=== PATIENT | male | born 1955 | race Two or more races ===

== ENCOUNTER → 2024-07-24 | Outpatient (CLI) | payer BC, SELFPAY ==
[2024-07-24 08:10] LABS: Collection Type, Urine Clean Catch
[2024-07-24 08:35] LABS: Basophils # (Auto) 0.1 Thou/mm3 (0.0-0.2); Basophils % (Auto) 1 % (0-2.5); Eosinophils # (Auto) 0.2 Thou/mm3 (0.0-0.5); Eosinophils % (Auto) 3 % (0-10); Hematocrit 42.7 % (41.0-53.0); Hemoglobin 15.5 g/dL (13.5-16.0); Immature Granulocytes % (Auto) 0 % (0-0); Immature Granulocytes Auto 0.02 Thou/mm3 (0.00-0.00); Lymphocytes # (Auto) 1.2 Thou/mm3 (1.0-4.8); Lymphocytes % (Auto) 21 % (10-50); Mean Corpuscular HGB Conc 36.3 g/dl (31.0-37.0); Mean Corpuscular Hemoglobin 31.6 pg (25.0-35.0); Mean Corpuscular Volume 87 fL (80-100); Monocytes # (Auto) 0.6 Thou/mm3 (0.0-0.8); Monocytes % (Auto) 10 % (0-12); Neutrophils # (Auto) 3.8 Thou/mm3 (1.8-7.7); Neutrophils % (Auto) 65 % (37-80); Nucleated Red Blood Cell % 0 /100 WBC (0); Platelet Count 185 Thou/mm3 (140-440); RDW Standard Deviation 39.6 fL (35.1-43.9); Red Blood Count 4.91 Miln/mm3 (4.50-5.90); White Blood Count 5.8 Thou/mm3 (3.8-10.6)
[2024-07-24 08:43] LABS: Bacteria,Urine 2+; Bilirubin,Urine Negative (Negative); Blood,Urine Negative (Negative); Clarity,Urine Clear (Clear/Hazy); Color,Urine Lt-Yellow (Lt Yel-Yel); Glucose, Urine Negative (Negative); Ketones,Urine Negative (Negative); Leukocyte Esterase,Urine Positive (Negative); Nitrite,Urine Positive (Negative); PH,Urine 6.5 (5.0-7.0); Protein,Urine Trace (Neg - Trace); RBC,Urine 3 /hpf (0-3); Specific Gravity,Urine 1.019 (1.001-1.035); Squamous Epithelial Cell,Urine 1 /hpf (0-5); Urobilinogen,Urine Negative mg/dL (0.0-1.0); WBC,Urine 7 /hpf (0-5)
[2024-07-24 08:49] LABS: Glucose Estimated Average 105 mg/dL (80-131); Hemoglobin A1C 5.3 % Hgb (4.8-6.0)
[2024-07-24 08:56] LABS: Prostate Specific Antigen 0.29 ng/mL (0-4.00)
[2024-07-24 08:58] LABS: Vitamin B12 510 pg/mL (211-911); Vitamin D 25 Hydroxy Total 26.5 ng/mL (7.3-40.2)
[2024-07-24 09:01] LABS: Alanine Aminotransferase 33 U/L (10-49); Albumin, Serum 4.7 gm/dL (3.4-4.8); Alkaline Phosphatase 106 U/L (46-116); Anion Gap 6 (7-16); Aspartate Amino Transferase 25 U/L (0-34); BUN/Creatinine Ratio 25 Ratio (12-20); Bilirubin,Total 0.6 mg/dL (0.3-1.2); Blood Urea Nitrogen 20 mg/dL (9-23); Cardiac Risk Estimate 3.5 RATIO (4.0-6.7); Chloride 104 mMol/L (98-107); Cholesterol 209 mg/dL (132-200); Creatinine (Component) 0.8 mg/dL (0.6-1.3); Globulin 2.4 gm/dL (2.3-3.5); Glucose 102 mg/dL (74-106); HDL Cholesterol 59 mg/dL (40-60); LDL Cholesterol,Calculated 130 mg/dL (0-130); Osmolality,Calculated 283 (275-295); Potassium 4.6 mMol/L (3.4-5.1); Sodium 141 mMol/L (136-145); Thyroid Stimulating Hormone 1.73 uIU/mL (0.55-4.78); Total Protein 7.1 gm/dL (5.7-8.2); Triglycerides 99 mg/dL (30-150); Uric Acid 5.1 mg/dL (3.7-9.2); eGFR > 60 See Note
[2024-08-01 06:26] LABS: Aldosterone* <5 ng/dL
[2024-08-05 06:53] LABS: Renin Activity, Plasma* 0.69 ng/mL/h (0.25-5.82)
== END | disposition home or self-care (01) ==
PROVIDERS: PCP Internal Medicine; Referring Provider Internal Medicine; Visit Provider Internal Medicine
DX: Z00.00 Encounter for general adult medical examination without abnormal findings (principal); I10 Essential (primary) hypertension
CPT/HCPCS: 36415; 80053; 80061; 81001; 82088; 82306; 82607; 83036; 84153; 84244; 84443; 84550; 85025

== ENCOUNTER → 2024-08-12 | Outpatient (CLI) | payer BC, SELFPAY ==
[2024-08-12 10:26] LABS: Misc Send Out* See Sep Rpt
== END | disposition home or self-care (01) ==
PROVIDERS: PCP Internal Medicine; Referring Provider Internal Medicine; Visit Provider Internal Medicine
DX: Z00.00 Encounter for general adult medical examination without abnormal findings (principal); I10 Essential (primary) hypertension
CPT/HCPCS: 82384

== ENCOUNTER 2024-08-17 14:52 | Emergency (ER) | payer BC, SELFPAY ==
[2024-08-17 16:00] VITALS: BP 124/63; PULSE 79; RESP 18; TEMP 36.7; O2SAT 98; BMI 25.7
--- NOTE | 2024-08-17 17:27 | EKG_ITS ---
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
--- NOTE | 2024-08-17 18:08 | PD.EDRME ---
Rapid Medical Screening Exam RME Arrival date/time: 08/17/24 14:52 68 year old male present to Ed for c/o of dizziness. I have greeted and performed a focused initial assessment of this patient. A comprehensive ED assessment and evaluation of the patient, analysis of all test results, and completion of the medical decision making process will be conducted by additional ED providers. Chief Complaint: Dizziness Time Seen by Provider: 08/17/24 21:02 Vital signs: Vital Signs Temperature 98.0 F 08/17/24 16:00 Pulse Rate 79 08/17/24 16:00 Respiratory Rate 18 08/17/24 16:00 Blood Pressure 124/63 08/17/24 16:00 Pulse Oximetry (%) 98 08/17/24 16:00 Oxygen Delivery Method Room Air 08/17/24 16:00
[2024-08-17 18:13] LABS: Basophils # (Auto) 0.1 Thou/mm3 (0.0-0.2); Basophils % (Auto) 1 % (0-2.5); Eosinophils # (Auto) 0.2 Thou/mm3 (0.0-0.5); Eosinophils % (Auto) 2 % (0-10); Hematocrit 45.7 % (41.0-53.0); Hemoglobin 16.3 g/dL (13.5-16.0); Immature Granulocytes % (Auto) 1 % (0-0); Immature Granulocytes Auto 0.04 Thou/mm3 (0.00-0.00); Lymphocytes # (Auto) 1.8 Thou/mm3 (1.0-4.8); Lymphocytes % (Auto) 20 % (10-50); Mean Corpuscular HGB Conc 35.7 g/dl (31.0-37.0); Mean Corpuscular Hemoglobin 31.2 pg (25.0-35.0); Mean Corpuscular Volume 87 fL (80-100); Monocytes % (Auto) 11 % (0-12); Neutrophils # (Auto) 5.7 Thou/mm3 (1.8-7.7); Neutrophils % (Auto) 65 % (37-80); Nucleated Red Blood Cell % 0 /100 WBC (0); Platelet Count 193 Thou/mm3 (140-440); RDW Standard Deviation 39.7 fL (35.1-43.9); Red Blood Count 5.23 Miln/mm3 (4.50-5.90); White Blood Count 8.7 Thou/mm3 (3.8-10.6)
[2024-08-17 18:27] LABS: B-Type Natriuretic Peptide < 20 pg/mL (0-100)
[2024-08-17 18:29] LABS: Alanine Aminotransferase 36 U/L (10-49); Albumin, Serum 4.9 gm/dL (3.4-4.8); Albumin/Globulin Ratio 1.8 (1.2-2.2); Alkaline Phosphatase 104 U/L (46-116); Anion Gap 7 (7-16); Aspartate Amino Transferase 30 U/L (0-34); BUN/Creatinine Ratio 29 Ratio (12-20); Bilirubin,Total 0.4 mg/dL (0.3-1.2); Blood Urea Nitrogen 29 mg/dL (9-23); Calcium 10.4 mg/dL (8.3-10.6); Calcium (Corrected) 10.4 mg/dL (8.5-10.1); Carbon Dioxide 31.7 mMol/L (20.0-31.0); Chloride 100 mMol/L (98-107); Estimated Creatinine Clearance 76.3 mL/min (>60); Globulin 2.8 gm/dL (2.3-3.5); Glucose 87 mg/dL (74-106); Osmolality,Calculated 282 (275-295); Potassium 3.9 mMol/L (3.4-5.1); Sodium 139 mMol/L (136-145); Total Protein 7.7 gm/dL (5.7-8.2); Troponin I < 0.020 ng/mL (0.0-0.045); eGFR > 60 See Note
--- NOTE | 2024-08-17 19:20 | XR_ITS ---
Examination: CT brain head without contrast. 2-D sagittal coronal reconstructions Date and time of exam:August 17, 2024 1727 hrs. Indications: Dizziness onset focal neurologic deficits today CTDI: vol (mGy):51.8 DLP: (mGycm):1079 Technique: Multiple CT axial sections of the brain have been obtained, 5 mm slice thickness. Contrast has not been administered. 2-D sagittal, coronal reconstructions have been obtained Low dose protocols were performed. One or more of the following dose reduction techniques were used; automated exposure control, adjustment of the mA and/or KV according to patient size, use of iterative reconstruction technique. Findings: No significant ventricular enlargement. Intra-axial or extra-axial hemorrhage density is not seen. No mass effect or midline shift Basal cisterns are not remarkable. Fourth ventricle is midline. Cranial vault intact. Impression: Negative for acute hemorrhage, mass effect or midline shift
--- NOTE | 2024-08-17 20:29 | PRELIM_ITS ---
CT scan of the head without intravenous contrast (axial sections with sagittal and coronal reformats) August 17, 2024 1927 hours Clinical history: Persistent dizziness, rule out stroke No prior study i s available for comparison. Findings:There is no evidence of intracranial hemorrhage, mass effect or midline shift. There are periventricular white matter hypodensities, compatible with chronic small ve ssel ischemia. No definitive wedge shaped acute infarcts are detected. Please note that subtle early infarcts are better assessed using diffusion weighted MR imaging if clinically indicated. There is mi ld volume loss. The calvarium is unremarkable. The mastoid air cells and the visualized paranasal sin uses are clear.Impression:No evidence of intracranial hemorrhage, mass effect or midline shift. If th ere are persistent clinical symptoms or additional clinical concerns consider an MRI.Periventricular chronic small vessel ischemia and volume loss. Report Electronically Signed By: Ed Cornelius 2024 8:28:52 PM [EST]
[2024-08-17 21:31] VITALS: BP 145/71; PULSE 71; RESP 17; TEMP 36.9; O2SAT 96
--- NOTE | 2024-08-17 21:45 | EDNOTE_ITS ---
ED Dizzyness RME/HPI General Chief Complaint: Dizziness Stated Complaint: LIGHT HEADED, DIZZINESS HX VERTIGO Time Seen by Provider: 08/17/24 21:02 Source: patient Arrival date/time: 08/17/24 14:52 Mode of arrival: ambulatory Limitations: no limitations RME / HPI RME / HPI Narrative: 08/17/24 14:52 68 year old male present to Ed for c/o of dizziness. I have greeted and performed a focused initial assessment of this patient. A comprehensive ED assessment and evaluation of the patient, analysis of all test results, and completion of the medical decision making process will be conducted by additional ED providers. --- DR. BARRETO MAIN ED EVALUATION: 68-year-old male with history of benign positional vertigo on Meclizine who p resents to the emergency department with complaints of intermittent onset of dizziness and nausea noted with quick movements, now worse since August 06. He notes it has been about the same in the last 12 to 24 hours and the patient just wanted to get checked out because he needs to go back to work on Monday. Patient states it is usually improved with Meclizine that he takes twice a day. Patient recently was treated for UTI about 1 week ago as an outpatient and his urinalysis definitely shows that he had a UTI. No urine culture was sent at the time. Patient states that this feels like the room is spinning and goes away with rest. The patient denies headache, weakness, paresthesias, loss of consciousness, fever, change in gait, tinnitus, vomiting, strength loss, chest pain, shortness of breath, diarrhea, vomiting, chills, diaphoresis, recent illnesses, or other complaints. No recent trauma, travel, unusual food, or illnesses. Primary care physician Dr. Eden Related Data Previous Rx's ?Medication ?Instructions ?Recorded meclizine 25 mg tablet 25 mg PO BID PRN dizziness #20 tabs 03/27/21 Allergies Allergy/AdvReac Type Severity Reaction Status Date / Time No Known Allergies Allergy Verified 08/17/24 14:53 Review of Systems Review of Systems Systems Reviewed: All systems reviewed, normal except as documented Past Medical History Past Medical History CARDIAC: Negative Congestive Heart Failure RESPIRATORY: Negative Chronic Obstructive Pulmonary Disease (COPD) GENITOURINARY: Negative Renal Disease ENDOCRINE: Negative Diabetes Mellitus Type 1 or Diabetes Mellitus Type 2 Social History SMOKING STATUS: Never smoker ED Exam Narrative Physical exam: General: Non-toxic, well appearing, in no acute distress, and appears state age and well developed and well nourished. Vital signs: Normal. Head: Normocephalic and atraumatic. Eyes: Aproptotic, extraocular movements intact, and pupils equally round and reactive to light. No nystagmus at rest. Nose: Nares without evidence of rhinorrhea. Neck: Supple without menigismus without lympadenopathy. Heart: Regular rate and rhythm without murmur, gallops, or rubs. Lungs: Clear to auscultation without wheezing, rales, or rhonchi. Abdomen: Soft, nontender, no masses, and not distended. Back: No costovertebral angle tenderness. Neurologic: Alert and oriented to person, place, and time. Cranial nerves 2-12 grossly intact. Sensation to light touch intact in all extremities. Strength 5/5 bilaterally. Negative drift and romberg. No dysdiadochokinesia. Negative romberg. Gait normal. Extremities: no cyanosis or edema. Skin: no rashes, ecchymosis, or lesions. General Limitations: Present no limitations Course Quality Measures none Orders Category Date Time Status EKG (ED ONLY) *Do not use* NOW Care 08/17/24 17:[address] head/brain wo con Stat Exams 08/17/24 19:20 Completed EKG (ED Only) Stat Exams 08/17/24 17:27 Draft BNP [B-Type Natriuretic Peptide] Stat Lab 08/17/24 17:44 Completed CBC Stat Lab 08/17/24 17:44 Completed Comprehensive Metabolic Panel Stat Lab 08/17/24 17:44 Completed Troponin I Stat Lab 08/17/24 17:44 Completed Urinalysis Stat Lab 08/17/24 22:04 Completed Urine Culture Stat Lab 08/17/24 22:04 Received Diazepam [Valium] Med 08/17/24 22:00 Discontinued 2 mg PO X1 ONE Vital Signs Vital signs: Vital Signs Temperature 98.0 F 08/17/24 16:00 Pulse Rate 79 08/17/24 16:00 Respiratory Rate 18 08/17/24 16:00 Blood Pressure 124/63 08/17/24 16:00 Pulse Oximetry (%) 98 08/17/24 16:00 Oxygen Delivery Method Room Air 08/17/24 16:00 Procedures -ED EKG Interpretation #1: Date of EK08/17/24 Time of EK:33 Rate: 74 Interpretation: Interpreted by me EKG Impression: Normal sinus rhythm Additional EKG comment: Right bundle branch block. QTc 429. No ST elevations or depressions. Impression: No ABRAHAM MS Dizziness MDM Narrative MDM Narrative:: Safety net established and ECG retrieved showing no evidence of STEMI or other acute findings. No evidence of central process since no neurological findings, acute onset, rapid resolution, and reproducible symptoms with Douglas-Hallpike maneuver. Doubt tumor, myocardial infarction, CVA, abscess, dissection, or ATT[employer]NEY [employer] pathology. Labs, CXR, and ECG unremarkable. After valium, patient noted significant symptomatic relief. Likely benign peripheral positional vertigo. Plan to follow up with primary care physician and use Meclizine for symptoms until seen. The patient was informed not to drive until seen by the primary care physician. Vital signs remained stable throughout the emergency department course. The patient was given strict return precautions and was comfortable with the plan. ? Scribe Attestation: I, Chayo Pierson, am scribing for and in the presence of Dr. Taylor. Provider Notation: Although this document has been carefully reviewed, there may still be some phonetic and other typographical errors. These errors are purely grammatical due to imperfections in the software program and should not be construed in any way to compromise the substance of the patient's medical care during this visit. Patient data External records reviewed:: [facility] previous records Clinical information provided by:: patient Social determinants that could affect healthcare access:: none Patient has the following chronic illnesses:: none How is presenting disease/condition affected by chronic disease/condition?: no chronic disease Evaluation data The following diagnostics were reviewed and interpreted by me:: lab results and radiology exam(s) Lab and/or radiology exams considered but not ordered:: none Interpretation Summary: I personally reviewed the radiology data and agree with the radiologist's interpretation. Examination: CT brain head without contrast. 2-D sagittal coronal reconstructions Date and time of exam:August 17, 2024 1727 hrs. Indications: Dizziness onset focal neurologic deficits today Findings: No significant ventricular enlargement. Intra-axial or extra-axial hemorrhage density is not seen. No mass effect or midline shift Basal cisterns are not remarkable. Fourth ventricle is midline. Cranial vault intact. Impression: Negative for acute hemorrhage, mass effect or midline shift Dictated By: Fuentes Leyva MD Medications / Prescriptions Medications or Prescriptions considered but not ordered:: None Medication administrations:: Medication Administration History Discontinued Medications Diazepam (Diazepam 5 Mg Tablet) 2 mg PO X1 ONE Stop: 08/17/24 22:01 Last Admin: 08/17/24 22:12 Dose: 2 mg Documented By: OA As above Consultations Consultation(s) initiated? (list below): No Diagnosis Dizziness Differential Diagnosis: adverse reaction to drug, benign paroxysmal positional vertigo and orthostatic hypotension Most likely diagnosis given after review of the tests above:: Acute dehydration, History of vertigo Admission Indicated Admission indicated?: not indicated Admission Request Was there a request for admission?: No Disposition Plan Disposition Plan: Discharge Discharge Attestation Discharge Attestation: The patient and all family members were given an opportunity to ask questions and understood the discharge instructions. Discharge instructions specifically effects, indications for sooner follow up or return to the emergency department, and the expected course of current diagnosis. Patient condition: Stable Discharge Plan Plan Patient Disposition: HOME (Self Care) Patient condition on transfer: Stable Prescriptions/Referrals Prescriptions/Med Rec: No Action meclizine 25 mg tablet 25 mg PO BID PRN (Reason: dizziness) Qty: 20 0RF Referrals: Shanel Crump MD [Primary Care Provider] - In 1 week Problem List Clinical Impression: Acute dehydration, History of vertigo Patient/Caregiver Discharge Instructions Education Materials: ED Dehydration (Adult) Additional Instructions: Today you have some dehydration based on your urine specific gravity. You will still need outpatient MRI since you are having slight increase in your benign positional vertigo. Please follow-up with Dr. Crump, on Monday as scheduled. Return to emergency department for any worsening symptoms, or any other concerns. Print Language: Mohawk Stand Alone Forms: Mel Award Info., Patient Portal Info Letter
[2024-08-17] MEDS: DIAZEPAM 5 MG TABLET 2 MG PO (22:12)
[2024-08-17 22:25] LABS: Collection Type, Urine Voided
[2024-08-17 22:35] LABS: Bilirubin,Urine Negative (Negative); Blood,Urine Negative (Negative); Clarity,Urine Clear (Clear/Hazy); Color,Urine Yellow (Lt Yel-Yel); Glucose, Urine Negative (Negative); Ketones,Urine Negative (Negative); Leukocyte Esterase,Urine Negative (Negative); Nitrite,Urine Negative (Negative); PH,Urine 5.5 (5.0-7.0); Protein,Urine Trace (Neg - Trace); RBC,Urine 7 /hpf (0-3); Specific Gravity,Urine 1.028 (1.001-1.035); Squamous Epithelial Cell,Urine 6 /hpf (0-5); Urobilinogen,Urine Negative mg/dL (0.0-1.0); WBC,Urine 5 /hpf (0-5)
== END 2024-08-18 01:12 | disposition home or self-care (01) ==
PROVIDERS: Emergency Provider Emergency Medicine; PCP Internal Medicine
DX: E86.0 Dehydration (principal)
CPT/HCPCS: 36415; 70450; 80053; 81001; 83880; 84484; 85025; 87086; 93005; 99284; A9270

== ENCOUNTER → 2024-12-16 | Outpatient (CLI) | payer OTHER, SELFPAY ==
[2024-12-16 09:57] LABS: Albumin, Serum 4.4 gm/dL (3.4-4.8); Anion Gap 6 (7-16); BUN/Creatinine Ratio 19 Ratio (12-20); Blood Urea Nitrogen 17 mg/dL (9-23); Calcium 9.2 mg/dL (8.3-10.6); Calcium (Corrected) 9.2 mg/dL (8.5-10.1); Carbon Dioxide 29.9 mMol/L (20.0-31.0); Chloride 105 mMol/L (98-107); Creatinine (Component) 0.9 mg/dL (0.6-1.3); Glucose 110 mg/dL (74-106); Osmolality,Calculated 283 (275-295); Phosphorous 2.9 mg/dL (2.4-5.1); Potassium 4.6 mMol/L (3.4-5.1); Sodium 141 mMol/L (136-145); eGFR > 60 See Note
== END | disposition home or self-care (01) ==
LOC: COPL 08:21
PROVIDERS: PCP Internal Medicine; Referring Provider Internal Medicine; Visit Provider Internal Medicine
DX: I10 Essential (primary) hypertension (principal)
CPT/HCPCS: 36415; 80069

== ENCOUNTER → 2025-03-24 | Outpatient (CLI) | payer OTHER, SELFPAY ==
[2025-03-24 07:53] LABS: Collection Type, Urine Clean Catch
[2025-03-24 08:41] LABS: Prostate Specific Antigen 0.30 ng/mL (0-4.00)
[2025-03-24 08:42] LABS: Basophils # (Auto) 0.1 Thou/mm3 (0.0-0.2); Basophils % (Auto) 1 % (0-2.5); Eosinophils # (Auto) 0.2 Thou/mm3 (0.0-0.5); Eosinophils % (Auto) 3 % (0-10); Hematocrit 41.8 % (41.0-53.0); Hemoglobin 14.9 g/dL (13.5-16.0); Immature Granulocytes Auto 0.03 Thou/mm3 (0.00-0.00); Lymphocytes # (Auto) 1.0 Thou/mm3 (1.0-4.8); Lymphocytes % (Auto) 16 % (10-50); Mean Corpuscular HGB Conc 35.6 g/dl (31.0-37.0); Mean Corpuscular Hemoglobin 31.8 pg (25.0-35.0); Mean Corpuscular Volume 89 fL (80-100); Monocytes # (Auto) 0.6 Thou/mm3 (0.0-0.8); Monocytes % (Auto) 9 % (0-12); Neutrophils # (Auto) 4.4 Thou/mm3 (1.8-7.7); Neutrophils % (Auto) 71 % (37-80); Nucleated Red Blood Cell # 0.00 Thou/mm3 (0.00-0.00); Nucleated Red Blood Cell % 0 /100 WBC (0); Platelet Count 178 Thou/mm3 (140-440); RDW Standard Deviation 42.6 fL (35.1-43.9); Red Blood Count 4.68 Miln/mm3 (4.50-5.90); White Blood Count 6.1 Thou/mm3 (3.8-10.6)
[2025-03-24 08:47] LABS: Alanine Aminotransferase 29 U/L (10-49); Albumin, Serum 4.2 gm/dL (3.4-4.8); Albumin/Globulin Ratio 1.7 (1.2-2.2); Alkaline Phosphatase 83 U/L (46-116); Anion Gap 8 (7-16); Aspartate Amino Transferase 30 U/L (0-34); BUN/Creatinine Ratio 19 Ratio (12-20); Bilirubin,Total 0.6 mg/dL (0.3-1.2); Blood Urea Nitrogen 15 mg/dL (9-23); Calcium 9.2 mg/dL (8.3-10.6); Calcium (Corrected) 9.2 mg/dL (8.5-10.1); Carbon Dioxide 27.9 mMol/L (20.0-31.0); Cardiac Risk Estimate 3.5 RATIO (4.0-6.7); Chloride 107 mMol/L (98-107); Cholesterol 187 mg/dL (132-200); Creatinine (Component) 0.8 mg/dL (0.6-1.3); Globulin 2.5 gm/dL (2.3-3.5); Glucose 108 mg/dL (74-106); HDL Cholesterol 54 mg/dL (40-60); LDL Cholesterol,Calculated 115 mg/dL (0-130); Osmolality,Calculated 286 (275-295); Potassium 4.0 mMol/L (3.4-5.1); Sodium 143 mMol/L (136-145); Thyroid Stimulating Hormone 1.64 uIU/mL (0.55-4.78); Total Protein 6.7 gm/dL (5.7-8.2); Triglycerides 91 mg/dL (30-150); Uric Acid 4.4 mg/dL (3.7-9.2); eGFR > 60 See Note
[2025-03-24 08:48] LABS: Vitamin B12 678 pg/mL (211-911); Vitamin D 25 Hydroxy Total 29.9 ng/mL (7.3-40.2)
[2025-03-24 08:51] LABS: Bacteria,Urine Rare; Bilirubin,Urine Negative (Negative); Blood,Urine Negative (Negative); Clarity,Urine Clear (Clear/Hazy); Color,Urine Yellow (Lt Yel-Yel); Glucose, Urine Negative (Negative); Ketones,Urine Negative (Negative); Leukocyte Esterase,Urine Positive (Negative); Nitrite,Urine Negative (Negative); PH,Urine 6.0 (5.0-7.0); Protein,Urine 1+ (Neg - Trace); RBC,Urine 2 /hpf (0-3); Specific Gravity,Urine 1.031 (1.001-1.035); Squamous Epithelial Cell,Urine 1 /hpf (0-5); Urobilinogen,Urine Negative mg/dL (0.0-1.0); WBC,Urine 5 /hpf (0-5)
[2025-03-28 06:46] LABS: ANA Screen, IFA NEGATIVE (NEGATIVE)
== END | disposition home or self-care (01) ==
LOC: COPL 06:51
PROVIDERS: PCP Internal Medicine; Referring Provider Internal Medicine; Visit Provider Specialist
DX: Z00.00 Encounter for general adult medical examination without abnormal findings (principal); E78.9 Disorder of lipoprotein metabolism, unspecified; Z12.5 Encounter for screening for malignant neoplasm of prostate
CPT/HCPCS: 36415; 80053; 80061; 81001; 82306; 82607; 84153; 84443; 84550; 85025; 86038

== ENCOUNTER 2025-04-28 10:40 | Day surgery (SDC) | payer OTHER, SELFPAY ==
[2025-04-28] VITALS (11 sets, daily range): BP systolic 141–206; BP diastolic 70–120; PULSE 64–83; RESP 15–22; TEMP 36.2–36.3; O2SAT 95–100; BMI 24.5
[2025-04-28] MEDS: SODIUM CHLORIDE 0.9% 500 ML 500 ML 20 ML IV (12:21)
[2025-04-28] MEDS: BENZOCAINE 20% (Hurricaine) SPRAY 1 DOSE TOP (12:26)
[2025-04-28] MEDS: hydrALAZINE INJ 20 MG/ML VIAL 10 MG IVP ×2 (12:30→12:39)
[2025-04-28] MEDS: MIDAZOLAM INJ 1 MG/ML VIAL 2 ML (ASD USE ONLY) 2 MG IVP (12:35)
[2025-04-28] MEDS: fentaNYL CIT INJ 50 mCg/ML AMP 2ML (ASD USE ONLY) IVP (12:44)
--- NOTE | 2025-04-28 12:50 | SUR.PHASEII ---
1244 patient is sleepy and arousable to loud voice, breathing unlabored, s/p EGD by Dr. Saenz, report received from Isabel ALVAREZ
--- NOTE | 2025-04-28 14:32 | SUR.PHASEII ---
1328 patient is awake, alert, breathing unlabored, able to tolerate 7up with no nausea or vomiting, able to pass gas, patient meets discharge criteria, discharge instructions given to patient and daughter Darcie, patient discharged home in wheelchair with all belongings.
== END 2025-04-28 13:28 | disposition home or self-care (01) ==
PROVIDERS: PCP Internal Medicine; Referring Provider Specialist; Visit Provider Specialist
PROC: (CPT 43239; principal; 2025-04-28 11:15)
DX: K22.2 Esophageal obstruction (principal); K20.90 Esophagitis, unspecified without bleeding; I10 Essential (primary) hypertension; Z79.899 Other long term (current) drug therapy; K29.50 Unspecified chronic gastritis without bleeding
CPT/HCPCS: 43248; 43239; A4649; C1769; J0360; J1200; J2250; J3010; J7999; A9270

== ENCOUNTER → 2025-06-25 | Outpatient (CLI) | payer OTHER, SELFPAY | END | disposition home or self-care (01) | LOC: SRTX 07:48 | PROVIDERS: PCP Internal Medicine; Referring Provider Psychiatry & Neurology Neurology; Visit Provider Psychiatry & Neurology Neurology | DX: R42 Dizziness and giddiness (principal) | CPT/HCPCS: 95816 ==

== ENCOUNTER → 2025-07-31 | Outpatient (CLI) | payer OTHER, SELFPAY ==
[2025-07-31 09:42] LABS: Urea Breath Test Negative (Negative)
== END | disposition home or self-care (01) ==
LOC: COPL 08:09
PROVIDERS: PCP Internal Medicine; Referring Provider Specialist; Visit Provider Specialist
DX: Z01.89 Encounter for other specified special examinations (principal); B96.81 Helicobacter pylori [H. pylori] as the cause of diseases classified elsewhere
CPT/HCPCS: 83013; 83014